=== PATIENT | female | born 1955 | race Caucasian/White ===

== ENCOUNTER 2022-03-28 14:58 | Outpatient (CLI) | payer MEDICARE, OTHER | END 2022-03-28 14:59 | disposition home or self-care (01) | LOC: RAD 14:58 | PROVIDERS: ATTEND Nurse Practitioner Family | DX: M54.6 Pain in thoracic spine (principal); M47.814 Spondylosis without myelopathy or radiculopathy, thoracic region | CPT/HCPCS: 72070 ==

== ENCOUNTER 2023-07-11 08:25 | Outpatient (CLI) | payer MEDICARE, OTHER | END 2023-07-11 08:26 | disposition home or self-care (01) | LOC: RAD 08:25 | PROVIDERS: ATTEND Internal Medicine Critical Care Medicine | DX: R06.00 Dyspnea, unspecified (principal) | CPT/HCPCS: 71046 ==